=== PATIENT | female | born 1960 | race Asian ===

== ENCOUNTER → 2017-05-11 | Outpatient (CLI) | payer OTHER | LOC: CIMAGING 11:38 | PROVIDERS: ATTEND Family Medicine | DX: M25.521 Pain in right elbow (principal); Z91.81 History of falling | CPT/HCPCS: 73060-PO; 73080-PO ==

== ENCOUNTER 2017-09-17 08:37 | Emergency (ER) | payer OTHER | END 2017-09-17 08:45 | disposition left against medical advice (07) | LOC: CED 08:37 | DX: Z53.21 Procedure and treatment not carried out due to patient leaving prior to being seen by health care provider (principal) ==